=== PATIENT | female | born 1955 | race Caucasian/White ===

== ENCOUNTER 2023-08-13 06:08 | Inpatient (IN) | payer MEDICARE, OTHER, SELFPAY ==
--- NOTE | 2023-07-06 11:56 | CM ---
Patient is scheduled for an elective R TKR on 08/13/23. Spoke with patient prior to surgery via telephone. Introduced role of Orthopedic Navigator. Patient reports that she lives alone in a one story home. There are three steps to enter. She
currently functions independently. She has a cpap. She has never had VN services. PCP is Dr. Alysa Kaur.
Discussed orthopedic program and post surgical plans. Reviewed anticipated length of stay and that goal is for her to return home at discharge. Also reviewed outpatient PT. Patient is in agreement with tentative plan and will go directly to
outpatient PT at [facility]. Her daughter will stay with her for the weekend. She will then have support from family and friends.
Patient will complete online education.
Plan: Orthopedic Navigator will remain available to assist with the care of patient and will reassess discharge needs after surgery.
[2023-07-23 10:32] LABS: Hematocrit 39.5 % (37.0-47.0); Hemoglobin 12.7 g/dL (12.0-16.0); Mean Corp Hgb Conc. 32.2 g/dL (33.0-37.0); Mean Corpuscular Volume 87.2 fL (81.0-99.0); Mean Platelet Volume 9.7 fL (7.4-10.4); Platelet Count 182 10^3/uL (130-400); Red Blood Cell Count 4.53 10^6/uL (4.20-5.40); Red Cell Dist. Width 13.7 % (11.5-14.5); White Blood Cell Count 4.8 10^3/uL (4.8-10.8)
[2023-07-23 11:01] LABS: ALT (SGPT) 21 U/L (0-35); AST (SGOT) 25 U/L (14-36); Albumin 4.3 g/dl (3.5-5.0); Alkaline Phosphatase 65 U/L (38-126); Blood Urea Nitrogen 20 mg/dl (7-17); Calcium 9.3 mg/dl (8.4-10.2); Carbon Dioxide 27 mmol/L (22-30); Chloride 103 mmol/L (98-107); Glucose 102 mg/dl (70-99); Potassium 4.6 mmol/L (3.5-5.1); Sodium 140 mmol/L (135-145); Total Bilirubin 0.9 mg/dl (0.2-1.3); Total Protein 6.8 g/dl (6.3-8.2); eGFR > 60.00
[2023-07-23 11:40] VITALS: BMI 42.7
[2023-07-23 13:14] LABS: Glycohemoglobin (HgbA1c) 5.8 % (4.0-5.6)
[2023-07-23 16:45] VITALS: BMI 42.7
[2023-08-13] VITALS (15 sets, daily range): BP systolic 103–132; BP diastolic 55–81; PULSE 62; O2SAT 94; BMI 42.7
[2023-08-13] MEDS: TYLENOL 650 MG PO ×4 (06:36→23:56)
[2023-08-13] MEDS: CELEBREX 200 MG PO (06:37)
[2023-08-13] MEDS: NORMOSOL-R 1000 IV ×2 (07:01→11:25)
[2023-08-13] MEDS: ROXICODONE 5 MG PO ×2 (11:57→20:43)
[2023-08-13] MEDS: BENADRYL 25 MG PO (11:58)
--- NOTE | 2023-08-13 14:30 | PTCARENOTE ---
Patient admitted from [facility] for right total knee arthroplasty.The patient is alert and oriented.She does not have any efrem at present.The neurovascular check is within normal limits and ongoing.The Aquacell dressing is dry and intact.Vital signs are
stable.The patient is in her bed with the call gregory.
--- NOTE | 2023-08-13 15:07 | W.PN.UPDATE ---
Update Note
Progress Note Update
Patient doing well s/p RTKR. Has been OOB. VSS. Pulm: nonlabored. RLE: Dressing CDI. NVI distally. Calf soft. Postop xray as expected. ASA for DVT prophylaxis. Plan for discharge tomorrow with outpatient PT on Thursday.
--- NOTE | 2023-08-13 15:13 | W.PN.UPDATE ---
Update Note
Progress Note Update
R knee OA s/p R TKA w/ Dr Anthony 08/13/23
DVT prophylaxis - ASA, b/l venous foot pumps
HTN - + parameters - monitor BP
PAF, status post convergent MAZE 2011, PVI x2, and multiple cardioversions
Atrial tachycardia, status post ablation 2004
PACs, asymptomatic
Sinus bradycardia secondary to Metoprolol, asymptomatic
- Monitor on tele
- Continue Metoprolol
- on ASA only
Asthma, mild and persistent
BRYANT, compliant with CPAP (setting 15)
Chronic dyspnea on exertion
- Monitor O2
- IS
- Resume inhalers
- Resume CPAP HS
GERD, hiatal hernia, and pre-pyloric ulcer on endoscopy 11/2022; ulcer healed on endoscopy 02/2023 - continue PPI therapy
- No NSAIDs
Multilevel degenerative disc disease with radiculopathy - consider Gabapentin or Lyrica
Hyperlipidemia
Tachycardia-mediated cardiomyopathy, recovered
Irritable bowel syndrome
Hemorrhoids
Remote migraines
Bilateral feet stress fractures and plantar fasciitis, treated conservatively
Uterine fibroids
Overactive bladder
Prediabetes, A1c 5.8
Morbid obesity, BMI 42.7
[2023-08-13] MEDS: TYLENOL PO (16:42)
[2023-08-13] MEDS: PROTONIX 40 MG PO (16:54)
[2023-08-13] MEDS: ZYRTEC 10 MG PO (16:54)
[2023-08-13] MEDS: ZOLOFT 150 MG PO (16:54)
[2023-08-13] MEDS: ANCEF 5 IV ×2 (16:55→23:56)
[2023-08-13] MEDS: LIPITOR 20 MG PO (17:08)
[2023-08-13] MEDS: ASPIRIN 325 MG PO (17:09)
[2023-08-13] MEDS: DECADRON 4 MG PO (20:46)
[2023-08-13] MEDS: COLACE 100 MG PO (20:46)
[2023-08-13] MEDS: SENOKOT 17.1999999999999993 MG PO (20:46)
[2023-08-13] MEDS: TOPROL XL 25 MG PO (20:47)
[2023-08-13] MEDS: BACTROBAN 2% OINTMENT 1 APPLIC NASAL (20:51)
[2023-08-14] MEDS: TYLENOL 650 MG PO ×2 (03:02→07:34)
[2023-08-14] MEDS: ROXICODONE 5 MG PO ×2 (03:02→07:46)
[2023-08-14 03:05] VITALS: BP 119/74
[2023-08-14 07:10] VITALS: BP 113/64
--- NOTE | 2023-08-14 07:32 | W.PN.ORTHO ---
Today's Communication / Plan
-
Plan for discharge today with outpatient Thursday
Assessment
.
Distal Motor Intact: Yes
Dressing:
Clean, dry and intact.
Assessment:
Doing well postop
Plan
.
Surgery / Date: 08/13/2023 R TKR Raj
DVT Prophylaxis: Aspirin
Activity:
Out of bed.
PT/OT
Discharge Plan: Home w/ Outpatient PT
Subjective
.
.:
Patient resting comfortably. OOB last night and in a chair today
Vital Signs and Labs
.
Vital Signs and Labs:
Lab Results
07/23/23 09:10
07/23/23 09:10
Temp Pulse Resp BP Pulse Ox
97.8 F 59 18 119/74 98
08/14/23 03:05 08/14/23 03:05 08/14/23 03:05 08/14/23 03:05 08/14/23 03:05
Non-invasive Hgb result: 12.9
Physical Exam
-
Pulm: nonlabored
CV: regular
RLE: NVI distally. Calf soft. Able to fully extend
[2023-08-14] MEDS: BACTROBAN 2% OINTMENT 1 APPLIC NASAL (07:34)
[2023-08-14] MEDS: PROTONIX 40 MG PO (07:35)
[2023-08-14] MEDS: ASPIRIN 325 MG PO (07:35)
[2023-08-14] MEDS: COLACE 100 MG PO (07:36)
[2023-08-14] MEDS: SENOKOT 17.1999999999999993 MG PO (07:36)
[2023-08-14] MEDS: ZYRTEC 10 MG PO (07:36)
[2023-08-14] MEDS: ZOLOFT 150 MG PO (07:37)
[2023-08-14] MEDS: TOPROL XL 25 MG PO (07:37)
[2023-08-14] MEDS: DECADRON 4 MG PO (07:37)
--- NOTE | 2023-08-14 08:33 | W.DCSUMMARY ---
Discharge Summary
Discharge Data
Date of Admission: 08/13/23
Date of Discharge: 08/14/23
-
Pending Results: No
Hospital Course
The patient underwent right total knee arthroplasty with Dr. Anthony without complications. The patient recovered in the PACU and was transferred to the floor. The postoperative course remained uncomplicated. At the time of discharge, the patient
was noted to be tolerating a regular diet, ambulating with adherence to weightbearing and activity restrictions, able to accomplish activities of daily living at baseline level, and had pain controlled on oral medications. Prior to discharge, the
patient was provided with appropriate discharge/follow-up/return instructions, and discharge medications
Discharge Plan
-
Patient Disposition: Home (Routine Discharge)
Discharge Diagnosis/Procedures: R knee OA s/p R TKA w/ Dr Anthony 08/13/23
Condition: Good
Diet: Regular
Activity: As tolerated and With Walker
Driving Restrictions: Not until seen by your Dr
Bathing Restrictions: OK to Shower
Other Services: PT
Wound Care: Dressing to be removed 1 week post-surgery. Marlyn to be removed at 2 week follow-up with surgeon's office.
Stand Alone Forms: Total Hip/Knee Replacement D/C
Referrals:
[facility], outpatient PT [Other] - 08/17/23
Simon Anthony MD [Active] - in two weeks
Alysa Kaur MD [Family Provider] -
Prescriptions:
New
mupirocin 2 % ointment
1 applic intranasal BID Qty: 1 0RF
Patient Comments:
last dose was this am, 08/13/23
dexamethasone 4 mg Tablet
4 mg PO BID Qty: 7 0RF
docusate sodium 100 mg Capsule
100 mg PO BID 10 Days Qty: 20 0RF
sennosides [Senna Laxative] 8.6 mg Tablet
17.2 mg PO BID 10 Days Qty: 40 0RF
oxycodone 5 mg Tablet
5 mg PO Q4HPRN PRN (Reason: moderate pain) 5 Days Qty: 20 0RF
Rx Instructions:
Dr Onel Whittaker [id number]
Continuing therapy
acetaminophen 325 mg Tablet
650 mg PO Q4HWA Qty: 60 0RF
Continued
calcium carbonate-vitamin D3 [Caltrate with Vitamin D3] 1 TAB tablet
1 tab PO DAILY
Rx Instructions:
800 units
biotin 5,000 MCG tablet,disintegrating
5,000 mcg PO DAILY
metoprolol succinate 25 MG tablet extended release 24 hr
25 mg PO BID
fluticasone propionate 1 SPRAY spray,suspension
1 spray intranasal DAILYPRN PRN (Reason: allergy symptoms)
omega-3 fatty acids-fish oil 684-1,200 mg Capsule,Delayed Release(Dr/Ec)
1 cap PO QPM
Patient Comments:
w/ D3
sertraline 100 mg Tablet
150 mg PO DAILY
Patient Comments:
Total 150mg daily
simvastatin 40 mg Tablet
40 mg PO QPM
lisinopril 40 mg Tablet
40 mg PO DAILY
Centrum Silver Women 8 mg iron-400 mcg-50 mcg Tablet
1 tab PO DAILY
Probiotic
1 cap PO Q48H
cetirizine [Zyrtec] 10 mg Tablet
10 mg PO DAILY
omeprazole 40 mg Capsule,Delayed Release(Dr/Ec)
40 mg PO DAILY@0700
calcium carbonate [Tums Ultra] 400 mg calcium (1,000 mg) Tablet,Chewable
1,000 - 2,000 mg PO HS
albuterol sulfate [ProAir HFA] 90 mcg/actuation Hfa Aerosol Inhaler
2 puff INHALATION Q6H PRN (Reason: SOB, Wheezes)
PreserVision AREDS-2 250-90-40-1 mg Capsule
1 tab PO BID
aspirin 325 MG tablet
325 mg PO QPM Qty: 0 0RF
Discontinued
ibuprofen [Advil] 200 mg Tablet
400 mg PO BID
Low-Dose Aspirin 81 mg Tablet
81 mg PO DAILY
Discharge Orders:
Discharge Patient (As Directed); Ordered 08/14/23
Ordered By: Prince Carmona
Discharge Date and Time
Print Language: SWEDISH
--- NOTE | 2023-08-14 08:35 | CM ---
Addendum entered by Ute Yarbrough 08/14/23 10:30:
Patient did well in therapy. She and her daughter have no concerns about discharge.
Original Note:
Reviewed chart and held rounds with PT, OT and nursing. Patient admitted as planned for elective R TKR. Met with patient and her daughter at bedside. Confirmed information previously obtained for assessment. Also discussed discharge plans. The plan
is for patient to return home at discharge. patient's daughter will be staying with her for the weekend and then she will have support from friends and family. Patient will go directly to outpatient PT and will go to [facility]. She has an
appointment scheduled for Thursday, 08/16.
Patient has a rolling walker, cane and commode.
She will use [facility] pharmacy for discharge prescriptions.
[2023-08-14 09:30] VITALS: BP 136/74; PULSE 53; O2SAT 98
[2023-08-14 09:34] VITALS: BMI 42.2
[2023-08-14 10:31] VITALS: BP 136/74; PULSE 53; O2SAT 98
== END 2023-08-14 11:09 | disposition home or self-care (01) | DRG 470 ==
LOC: 2 SOUTH 06:08
PROVIDERS: ADMITTING PHYSICIAN Orthopaedic Surgery; FAMILY PHYSICIAN Internal Medicine
PROC: 0SRC0J9 Replacement of Right Knee Joint with Synthetic Substitute, Cemented, Open Approach (ICD-10-PCS; 2023-08-13)
DX: M17.11 Unilateral primary osteoarthritis, right knee (principal)
CPT/HCPCS: 36415; 73560; 80053; 83036; 85027; 87070; 97110; 97116; 97162; 97166; 97530; 97535; C1713; C1776

== ENCOUNTER 2023-12-17 18:36 | Emergency (ER) | payer MEDICARE, OTHER, SELFPAY ==
[2023-12-17 18:40] VITALS: BP 152/84
--- NOTE | 2023-12-17 21:02 | ED.GENMED ---
History of Present Illness
General
Chief Complaint: Fall
Source: patient
Exam Limitations: none
Time Seen by Provider: 12/17/23 20:22
History of Present Illness
History of Present Illness:
This is a 67 year old female that comes in with c/o fall. States that she was walking out her daughters driveway and there are rocks and roots there and the leaves where covering the ground. States that she tripped on the edge of the driveway and
she fell on her right shoulder and right knee. Denies hitting her head or any LOC. Denies any fever, chills, chest pain, SOB, abd pain, nausea, vomiting, diarrhea, headache, dizziness, urinary burning.
Past History
Past History
ED Past Medical History: Arrthythmia (Atrial fib, SVT with ablation), Asthma, CHF, GERD, HTN, Hypercholesterolemia, NIDDM and Other ( Back and neck pain, Migraines, Numbness arms and legs, Ulner nerve compression, PNA, Sleep apnea, Hemorrhoids, IBS,
C-diff, Uterine fibroid, Ulcers)
ED Past Surgical History: Cardiac (ablation for SVT, Loops recorder, 4 Cardioversion), Gynecological (D&C, Tubal, ), Orthopedic (Right knee replacement. Left knee surgery, ) and Other (Cataracts, )
Social History
Tobacco: Non-smoker
Alcohol: None
Drug: None
Personal:
Living: alone
Employment: Employed (nurse)
Review of Systems
Review of Systems
All Other Systems: ROS reviewed and negative except as documented in HPI and ROS
Constitutional: Reports no symptoms; Denies fever or chills
EENT: Reports no symptoms
Respiratory: Reports no symptoms; Denies cough or trouble breathing
Cardiac: Reports no symptoms; Denies chest pain
ABD/GI: Reports no symptoms; Denies abdominal pain, nausea, vomiting or diarrhea
: Reports no symptoms; Denies dysuria, frequency or urgency
Musculoskeletal: Reports joint pain (Right shoulder and right knee pain)
Skin: Reports no symptoms
Neurological: Reports no symptoms; Denies dizzy or headache
Psychiatric: Reports no symptoms
Phy Exam
General Physical Exam
General Presentation: well appearing and no apparent distress
General age: appears stated age
General Skin: warm and dry
General Habitus: normal
General Mental: alert
General Hydration: appears well hydrated
ENT Exam
ENT Exam: TM's normal, pharynx normal and neck supple
Eye Exam
Eye Exam: EOMI
Cardiovascular Exam
Cardiovascular Exam: regular rate/rhythm, no edema and normal peripheral pulses
Pulmonary Exam
Pulmonary Exam: lungs clear, no respiratory distress, no rales, chest non tender, no crackles, no rhonchi, no wheezing and no cough
Musculoskeletal Exam
Musculoskeletal Exam: full ROM, no edema and other (Negative for shoulder or knee tenderness with palpation. Negative cervical spine or spinal tenderness with palpation. Patient able to flex knee without discomfort. Patient can abduct and cross over
without discomfort)
Skin Exam
Skin Exam: normal color, warm/dry, no rash and no petechia
Psychiatric Exam
Psychiatric Exam: normal mood/affect
Course
Orders/Labs/Results
Orders:
Orders
12/17/23 18:43
CR Knee- Right 4 Or More View* Urgent
Comment: knee replacement july 2023
Reason For Exam: fell anded on right knee
Shoulder, Right, Trauma [CR Shoulder, Trauma - Right] Urgent
Comment:
Reason For Exam: fell and landed on right shoulder
Vital Signs
Initial and Last Documented VS:
Initial Vital Signs
Temp Pulse Resp BP Pulse Ox
98.2 F 64 16 152/84 98
12/17/23 18:40 12/17/23 18:40 12/17/23 18:40 12/17/23 18:40 12/17/23 18:40
Last Documented Vital Signs
Temp Pulse Resp BP Pulse Ox
98.2 F 64 16 152/84 98
12/17/23 18:40 12/17/23 18:40 12/17/23 18:40 12/17/23 18:40 12/17/23 18:40
MDM/Problems Addressed
Differential Diagnosis Includes:
Knee fracture, Knee contusion, Shoulder contusion
MDM/Problems Addressed:
This is a 67 year old female that comes in with c/o fall. States that she fell on her right knee and right shoulder.
Explained that there are no fractures or dislocation. Patient will be more sore tomorrow then today, ice to any area that is sore. Tylenol arthritis as needed for pain. Return with any concerns.
Chronic conditions affecting care:
NA
Acute Exacerbation and/or Progression of Chronic Illness:
NA
*Radiology
Radiology exam reviewed: radiology read reviewed (Shoulder-NO evidence of acute fracture or dislocation. Degenerative changes of the right shoulder as described. Right knee-NO evidence of acute fracture or dislocation. )
*Pulse Oximetry
Patient hypoxic: no
*EKG
Interpreted by ED Provider?: NA
Rate: EKG- N/A
*Hand Button Splitter Interpretation
Rate: Hand Button Splitter- N/A
*Critical Care Note
Total Time (30-74mins, 75-104mins- exclusive of procedures): Not Applicable
ED Attending Note
-
Portions of this chart may have been created with voice recognition software.� Occasional wrong word or��sound alike� substitutions may have occurred due to the inherent limitations of voice recognition software.
Discharge Plan
Departure
Patient Disposition: Home (Routine Discharge)
Date of Disposition: 12/17/23
Time of Disposition: 21:11
Patient with high blood pressure during this ER visit?: Yes
Condition: Good
Covid-19: Not Applicable
Discharge Problem:
Accidental fall, Contusion
Instructions: Contusion (DC), Preventing falls in adults, BLOOD PRESSURE
Prescriptions:
No Action
calcium carbonate-vitamin D3 [Caltrate with Vitamin D3] 1 TAB tablet
1 tab PO DAILY
Rx Instructions:
800 units
biotin 5,000 MCG tablet,disintegrating
5,000 mcg PO DAILY
metoprolol succinate 25 MG tablet extended release 24 hr
25 mg PO BID
fluticasone propionate 1 SPRAY spray,suspension
1 spray intranasal DAILYPRN PRN (Reason: allergy symptoms)
omega-3 fatty acids-fish oil 684-1,200 mg Capsule,Delayed Release(Dr/Ec)
1 cap PO QPM
Patient Comments:
w/ D3
sertraline 100 mg Tablet
150 mg PO DAILY
Patient Comments:
Total 150mg daily
simvastatin 40 mg Tablet
40 mg PO QPM
lisinopril 40 mg Tablet
40 mg PO DAILY
Centrum Silver Women 8 mg iron-400 mcg-50 mcg Tablet
1 tab PO DAILY
Probiotic
1 cap PO Q48H
cetirizine [Zyrtec] 10 mg Tablet
10 mg PO DAILY
omeprazole 40 mg Capsule,Delayed Release(Dr/Ec)
40 mg PO DAILY@0700
calcium carbonate [Tums Ultra] 400 mg calcium (1,000 mg) Tablet,Chewable
1,000 - 2,000 mg PO HS
albuterol sulfate [ProAir HFA] 90 mcg/actuation Hfa Aerosol Inhaler
2 puff INHALATION Q6H PRN (Reason: SOB, Wheezes)
PreserVision AREDS-2 250-90-40-1 mg Capsule
1 tab PO BID
mupirocin 2 % ointment
1 applic intranasal BID Qty: 1 0RF
Patient Comments:
last dose was this am, 08/13/23
dexamethasone 4 mg Tablet
4 mg PO BID Qty: 7 0RF
docusate sodium 100 mg Capsule
100 mg PO BID 10 Days Qty: 20 0RF
sennosides [Senna Laxative] 8.6 mg Tablet
17.2 mg PO BID 10 Days Qty: 40 0RF
oxycodone 5 mg Tablet
5 mg PO Q4HPRN PRN (Reason: moderate pain) 5 Days Qty: 20 0RF
Rx Instructions:
Dr Onel Whittaker [id number]
Continuing therapy
acetaminophen 325 mg Tablet
650 mg PO Q4HWA Qty: 60 0RF
aspirin 325 MG tablet
325 mg PO QPM Qty: 0 0RF
Referrals:
Alysa Kaur MD [Family Provider] - As needed
Activity Restrictions/Additional Instructions:
As discussed, your shoulder and knee are negative for any acute fracture or dislocation. There is degenerative changes in the right shoulder. Please use ice to any area that is sore. Use your Tylenol arthritis for pain. You may be more sore tomorrow
then today. Follow up with the family doctor as needed. IF YOU HAVE ANY OTHER CONCERNS PLEASE RETURN TO THE EMERGENCY ROOM
Interventions
Interventions:
*Risk Screen - Suicide Last Done: 12/17/23 18:40
*General Assessment Last Done: 12/17/23 20:28
*Neglect/Abuse Screening Last Done: 12/17/23 18:40
*ED COVID-19 Vaccine History Last Done: 12/17/23 20:28
ED-Musculoskeletal Assessment Last Done: 12/17/23 20:30
ED- Neurological Assessment Last Done: 12/17/23 20:28
ED-Skin Assessment Last Done: 12/17/23 20:30
Discharge Date and Time
Print Language: CROATIAN
[2023-12-17 21:21] VITALS: BP 129/87
== END 2023-12-17 21:26 | disposition home or self-care (01) ==
LOC: EMR 18:36
PROVIDERS: EMERGENCY PHYSICIAN Emergency Medicine; FAMILY PHYSICIAN Internal Medicine
DX: M25.511 Pain in right shoulder (principal); M25.561 Pain in right knee; W19.XXXA Unspecified fall, initial encounter; I48.91 Unspecified atrial fibrillation; I47.10 Supraventricular tachycardia, unspecified; J45.909 Unspecified asthma, uncomplicated; I11.0 Hypertensive heart disease with heart failure; I50.9 Heart failure, unspecified; E11.36 Type 2 diabetes mellitus with diabetic cataract; E78.00 Pure hypercholesterolemia, unspecified; G47.30 Sleep apnea, unspecified; K21.9 Gastro-esophageal reflux disease without esophagitis; K58.9 Irritable bowel syndrome, unspecified; Z87.19 Personal history of other diseases of the digestive system; Z96.651 Presence of right artificial knee joint
CPT/HCPCS: 99283; 73030; 73564

== ENCOUNTER → 2024-01-07 16:21 | Outpatient (REF) | payer MEDICARE, OTHER, SELFPAY | LOC: WDC 16:21 | PROVIDERS: ATTENDING PHYSICIAN Obstetrics & Gynecology; FAMILY PHYSICIAN Internal Medicine | DX: Z12.31 Encounter for screening mammogram for malignant neoplasm of breast (principal) | CPT/HCPCS: 77063; 77067 ==

== ENCOUNTER → 2024-02-26 11:32 | Outpatient (REF) | payer MEDICARE, OTHER, SELFPAY ==
[2024-02-26 12:59] LABS: % Basophils 0.9 % (0-2); % Eosinophils 4.9 % (0-6); % Immature Granulocytes 0.4 % (0-0.5); % Lymphocytes 28.3 % (20.5-51.1); % Monocytes 7.6 % (1.7-9.3); % Neutrophils 57.9 % (42.2-75.2); Absolute Basophils 0.1 10^3/uL (0-0.2); Absolute Eosinophils 0.3 10^3/uL (0-0.7); Absolute Lymphocytes 1.6 10^3/uL (1.2-3.4); Absolute Monocytes 0.4 10^3/uL (0.1-0.6); Absolute Neutrophils 3.2 10^3/uL (1.4-6.5); Hematocrit 39.8 % (37.0-47.0); Mean Corp Hgb Conc. 32.7 g/dL (33.0-37.0); Mean Corpuscular Hgb 28.4 pg (27.0-31.0); Mean Corpuscular Volume 87.1 fL (81.0-99.0); Mean Platelet Volume 9.1 fL (7.4-10.4); Nucleated Red Blood Cells % 0 %; Platelet Count 201 10^3/uL (130-400); Red Blood Cell Count 4.57 10^6/uL (4.20-5.40); Red Cell Dist. Width 13.8 % (11.5-14.5); White Blood Cell Count 5.6 10^3/uL (4.8-10.8)
[2024-02-26 13:13] LABS: ALT (SGPT) 19 U/L (0-35); AST (SGOT) 22 U/L (14-36); Albumin 4.6 g/dl (3.5-5.0); Alkaline Phosphatase 76 U/L (38-126); Blood Urea Nitrogen 20 mg/dl (7-17); Calcium 9.4 mg/dl (8.4-10.2); Carbon Dioxide 30 mmol/L (22-30); Chloride 98 mmol/L (98-107); Glucose 99 mg/dl (70-99); HDL Cholesterol 77 mg/dl; LDL Cholesterol, Calculated 88 mg/dl; Potassium 4.6 mmol/L (3.5-5.1); Sodium 136 mmol/L (135-145); Total Bilirubin 0.9 mg/dl (0.2-1.3); Total Cholesterol 189 mg/dl (50-199); Total Protein 7.2 g/dl (6.3-8.2); Triglyceride 121 mg/dl (10-149); Very Low Density Lipoprotein 24 mg/dl (0-30); eGFR > 60.00
[2024-02-26 13:16] LABS: Microalbumin, Random Urine < 0.6 mg/dl (0.6-1.7)
[2024-02-26 14:36] LABS: Glycohemoglobin (HgbA1c) 5.6 % (4.0-5.6)
== END ==
LOC: REG 11:32
PROVIDERS: ATTENDING PHYSICIAN Internal Medicine
DX: E66.01 Morbid (severe) obesity due to excess calories (principal); E78.5 Hyperlipidemia, unspecified; E11.9 Type 2 diabetes mellitus without complications; R53.83 Other fatigue; M25.50 Pain in unspecified joint
CPT/HCPCS: 36415; 80053; 80061; 82043; 83036; 84443; 85025

== ENCOUNTER → 2024-04-12 09:40 | Outpatient (REF) | payer MEDICARE, OTHER, SELFPAY | LOC: HWRAD 09:40 | PROVIDERS: ATTENDING PHYSICIAN Obstetrics & Gynecology; FAMILY PHYSICIAN Internal Medicine | DX: Z78.0 Asymptomatic menopausal state (principal) | CPT/HCPCS: 77080 ==

== ENCOUNTER → 2024-04-26 11:04 | Outpatient (REF) | payer MEDICARE, OTHER, SELFPAY | LOC: HWRAD 11:04 | PROVIDERS: ATTENDING PHYSICIAN Specialist; FAMILY PHYSICIAN Internal Medicine | DX: M19.011 Primary osteoarthritis, right shoulder (principal) | CPT/HCPCS: 73200 ==

== ENCOUNTER → 2024-05-20 12:55 | Outpatient (REF) | payer MEDICARE, OTHER, SELFPAY | LOC: RCS 12:55 | PROVIDERS: ATTENDING PHYSICIAN Internal Medicine Cardiovascular Disease; FAMILY PHYSICIAN Internal Medicine | DX: I51.7 Cardiomegaly (principal) | CPT/HCPCS: 93306 ==

== ENCOUNTER 2024-05-27 05:58 | Day surgery (SDC) | payer MEDICARE, OTHER, SELFPAY ==
[2024-05-04 11:32] LABS: Hematocrit 39.8 % (37.0-47.0); Hemoglobin 12.7 g/dL (12.0-16.0); Mean Corp Hgb Conc. 31.9 g/dL (33.0-37.0); Mean Corpuscular Hgb 28.2 pg (27.0-31.0); Mean Corpuscular Volume 88.2 fL (81.0-99.0); Mean Platelet Volume 9.4 fL (7.4-10.4); Platelet Count 201 10^3/uL (130-400); Red Blood Cell Count 4.51 10^6/uL (4.20-5.40); Red Cell Dist. Width 13.6 % (11.5-14.5); White Blood Cell Count 5.2 10^3/uL (4.8-10.8)
[2024-05-04 12:08] LABS: ALT (SGPT) 20 U/L (0-35); AST (SGOT) 20 U/L (14-36); Albumin 4.5 g/dl (3.5-5.0); Alkaline Phosphatase 73 U/L (38-126); Blood Urea Nitrogen 20 mg/dl (7-17); Carbon Dioxide 27 mmol/L (22-30); Chloride 101 mmol/L (98-107); Glucose 90 mg/dl (70-99); Potassium 4.5 mmol/L (3.5-5.1); Sodium 137 mmol/L (135-145); Total Bilirubin 0.8 mg/dl (0.2-1.3); Total Protein 6.8 g/dl (6.3-8.2); eGFR > 60.00
--- NOTE | 2024-05-04 12:15 | VNURNOTE ---
Received update via T.T. from Radha LUNDBERG that VN, PT not indicated post shoulder surgery.
[2024-05-04 12:38] LABS: Glycohemoglobin (HgbA1c) 5.7 % (4.0-5.6)
[2024-05-04 14:17] VITALS: BMI 43.7
[2024-05-17 12:01] VITALS: BMI 43.7
--- NOTE | 2024-05-23 10:01 | W.PREADMORTH ---
Ortho Preadmission Testing
-
After discussion with Dr. Sykes, we will have patient reduce her ASA from 325 mg to 81 mg daily 2 days prior to surgery.
Patient made aware through phone call today.
--- NOTE | 2024-05-26 13:11 | W.PN.UPDATE ---
Update Note
Progress Note Update
Pt called today to let me know about recent R-sided neck, chest, and UE 'inflammation' and itching likely 2* pre-op benzyl peroxide.
She denies any other recently changed lotions, creams, powders, perfumes, or soaps.
Has tolerated Hibiclens previously after prior joint arthroplasty.
Given this, she was advised to stop the benzyl peroxide altogether. Will include this in her allergies.
Pt was told surgeon or surgical PA will likely evaluate her inflammation the morning of her procedure. Pt expressed understanding.
[2024-05-27] VITALS (9 sets, daily range): BP systolic 127–154; BP diastolic 77–92; BMI 43.7
[2024-05-27] MEDS: TYLENOL 1000 MG PO (06:32)
[2024-05-27] MEDS: NORMOSOL-R/PLASMALYTE-A 1000 IV (06:44)
--- NOTE | 2024-05-27 07:35 | W.DS.TRANS ---
DC Summary - [employer]
-
Discharge Instructions:
Discharge Diagnosis/Procedures R Reverse TSA 05/27/24
Diet As tolerated
Activity No strenuous activity
Driving Restrictions No driving
Instructions:
Stand-Alone Forms: SDS Total Shoulder D/C Inst.
Changes to Home Medications: Yes
Discharge Medications:
DC Medications w/original date entered in [employer]
calcium 600 mg (as carbonate)-vitamin D3 20 mcg (800 unit) tablet (Caltrate with Vitamin D3) 1 tab PO DAILY 08/07/08
biotin 5,000 mcg disintegrating tablet 5,000 mcg PO DAILY 05/12/16
metoprolol succinate 25 mg tablet,extended release 24 hr 25 mg PO BID 05/12/16
fluticasone propionate 50 mcg/actuation nasal spray,suspension 1 spray intranasal DAILYPRN PRN allergy symptoms 03/11/23
omega-3 fatty acids-fish oil 684 mg-1,200 mg capsule,delayed release 1 cap PO QPM 03/11/23
Probiotic 1 cap PO Q48H 07/20/23
albuterol sulfate 90 mcg/actuation aerosol inhaler (ProAir HFA) 2 puff inhalation Q6H PRN SOB, Wheezes 07/20/23
calcium carbonate (Tums Ultra) 1,000 - 2,000 mg PO HS 07/20/23
cetirizine 10 mg tablet (Zyrtec) 10 mg PO DAILY 07/20/23
lisinopril 40 mg tablet 40 mg PO DAILY 07/20/23
vebqjvbj-qhlm-cogs 8 mg-folic 400 mcg-K 50 mcg-lutein 300 mcg tablet (Centrum Silver Women) 1 tab PO DAILY 07/20/23
omeprazole 40 mg capsule,delayed release 40 mg PO DAILY@0700 07/20/23
sertraline 100 mg tablet 150 mg PO DAILY 07/20/23
simvastatin 40 mg tablet 40 mg PO QPM 07/20/23
vit C 250 mg-vit E 90 mg-zinc 40 mg-copper 1 [id number]-dhqyhe capsule (PreserVision AREDS-2) 1 tab PO BID 07/20/23
aspirin 325 mg tablet 325 mg PO QPM Blood clot prevention/tx #0 tabs 08/14/23
cefadroxil 500 mg capsule 500 mg PO BID #14 caps 05/04/24
dexamethasone 4 mg tablet 4 mg PO BID Anti-inflammatory #7 tabs 05/04/24
mupirocin 2 % topical ointment 1 applic intranasal BID #1 tube 05/04/24
ondansetron HCl 4 mg tablet 4 mg PO Q6H PRN nausea and vomiting #30 tabs 05/04/24
oxycodone 5 mg tablet 5 - 10 mg (1 - 2 x 5 mg) PO Q6H PRN moderate-severe pain #30 tabs 05/04/24
Saccharomyces boulardii 250 mg capsule (Florastor) 250 mg PO BID #1 cap 05/27/24
acetaminophen 325 mg tablet 650 mg (2 x 325 mg) PO QID Pain #0 tabs 05/27/24
docusate sodium 100 mg capsule 100 mg PO BID Constipation #0 caps 05/27/24
sennosides 8.6 mg tablet (Senna Laxative) 17.2 mg (2 x 8.6 mg) PO BID Constipation #0 tabs 05/27/24
Home Medication Changes
aspirin 325 mg tablet 325 mg PO QPM Blood clot prevention/tx #0 tabs 08/14/23
cefadroxil 500 mg capsule 500 mg PO BID #14 caps 05/04/24
dexamethasone 4 mg tablet 4 mg PO BID Anti-inflammatory #7 tabs 05/04/24
mupirocin 2 % topical ointment 1 applic intranasal BID #1 tube 05/04/24
ondansetron HCl 4 mg tablet 4 mg PO Q6H PRN nausea and vomiting #30 tabs 05/04/24
oxycodone 5 mg tablet 5 - 10 mg (1 - 2 x 5 mg) PO Q6H PRN moderate-severe pain #30 tabs 05/04/24
Saccharomyces boulardii 250 mg capsule (Florastor) 250 mg PO BID #1 cap 05/27/24
acetaminophen 325 mg tablet 650 mg (2 x 325 mg) PO QID Pain #0 tabs 05/27/24
docusate sodium 100 mg capsule 100 mg PO BID Constipation #0 caps 05/27/24
sennosides 8.6 mg tablet (Senna Laxative) 17.2 mg (2 x 8.6 mg) PO BID Constipation #0 tabs 05/27/24
Pending Results: No
[2024-05-27] MEDS: ANCEF 5 IV (11:34)
== END 2024-05-27 12:00 | disposition home or self-care (01) ==
LOC: SDS 05:58
PROVIDERS: ATTENDING PHYSICIAN Specialist; FAMILY PHYSICIAN Internal Medicine; OTHER PHYSICIAN Internal Medicine Cardiovascular Disease; OTHER PHYSICIAN Physician Assistant
DX: M19.011 Primary osteoarthritis, right shoulder (principal)
CPT/HCPCS: 23472; 36415; 73020; 80053; 83036; 85027; 87070; C1713; C1776

== ENCOUNTER → 2025-01-18 11:35 | Outpatient (REF) | payer MEDICARE, OTHER, SELFPAY | LOC: HWWDC 11:35 | PROVIDERS: ATTENDING PHYSICIAN Obstetrics & Gynecology; FAMILY PHYSICIAN Internal Medicine | DX: Z12.31 Encounter for screening mammogram for malignant neoplasm of breast (principal) | CPT/HCPCS: 77063; 77067 ==